=== PATIENT | male | born 1975 | race Caucasian/White ===

== ENCOUNTER 2020-04-02 19:34 | Emergency (ER) | payer OTHER ==
--- NOTE | 2020-04-02 19:36 | EDM.PDOC ---
ED HPI GENERAL MEDICAL PROBLEM - General Stated Complaint: LOW OXYGEN, NOT FEELING WELL Time Seen by Provider: 04/02/20 19:34 Source of Information: Reports: Patient History Limitations: Reports: No Limitations - History of Present Illness INITIAL COMMENTS - FREE TEXT/NARRATIVE: 44-year-old male no past medical history presents for concern for hypoxia. Patient notes that 3 weeks ago he started to feel unwell with loss of taste and smell, shortness of breath, cough, chest tightness. He did not get tested for Covid but self isolated. He notes continued but improving symptoms. He purchased a pulse oximeter today and noted that it was reading 65. His was concerned prompting him to seek medical attention. On further history he notes that the pulse ox read 99% and had number 65 at the bottom. - Related Data Allergies Allergy/AdvReac Type Severity Reaction Status Date / Time No Known Allergies Allergy Verified 04/02/20 20:13 Home Meds: Home Meds . [No Known Home Meds] 11/28/14 [History] Past Medical History - Past Surgical History Other GI Surgeries/Procedures: lapband ED ROS GENERAL - Review of Systems Review Of Systems: Comprehensive ROS is negative, except as noted in HPI. ED EXAM, GENERAL - Physical Exam Exam: See Below Exam Limited By: No Limitations General Appearance: Alert, WD/WN, No Apparent Distress Throat/Mouth: Normal Inspection, Normal Voice, No Airway Compromise Head: Atraumatic, Normocephalic Neck: Normal Inspection Respiratory/Chest: No Respiratory Distress, Lungs Clear, Normal Breath Sounds, No Accessory Muscle Use Cardiovascular: Normal Peripheral Pulses, Regular Rate, Rhythm, No Edema Extremities: Normal Inspection Neurological: Alert, Normal Gait Psychiatric: Normal Affect, Normal Mood Skin Exam: Warm, Dry, Intact, Normal Color Course - Vital Signs Last Recorded V/S: Last Vital Signs Temp 98.4 F 04/02/20 19:40 Pulse 68 04/02/20 19:40 Resp 20 04/02/20 19:40 BP 160/90 H 04/02/20 19:40 Pulse Ox 96 04/02/20 19:40 - Orders/Labs/Meds Labs: Laboratory Tests 04/02/20 Range/Units 20:00 SARS-CoV-2 RNA (MAGALY) POSITIVE H (NEGATIVE) - Re-Assessments/Exams Free Text/Narrative Re-Assessment/Exam: 04/02/20 19:59 Will get CXR and COVID-19 swab; suspicion for serious cardiopulmonary pathology is low as patient is with normal vitals and without respiratory distress on exam. 04/02/20 20:57 Patient's x-ray reveals mild bilateral bibasilar infiltrates consistent with COVID-19 pneumonia. COVID-19 swab is positive. Will discharge with Covid precautions. Patient maintains normal vital signs without supplemental oxygen and is in no respiratory distress. Departure - Departure Time of Disposition: 20:58 Disposition: Home, Self-Care 01 Condition: Good Clinical Impression: COVID-19 - Discharge Information Instructions: COVID-19 Frequently Asked Questions, COVID-19: How to Protect Yourself and Others - [facility] Referrals: PCP,None [Primary Care Provider] - Additional Instructions: The following information is given to patients seen in the emergency department who are being discharged to home. This information is to outline your options for follow-up care. We provide all patients seen in our emergency department with a follow-up referral. The need for follow-up, as well as the timing and circumstances, are variable depending upon the specifics of your emergency department visit. If you don't have a primary care physician on staff, we will provide you with a referral. We always advise you to contact your personal physician following an emergency department visit to inform them of the circumstance of the visit and for follow-up with them and/or the need for any referrals to a consulting specialist. The emergency department will also refer you to a specialist when appropriate. This referral assures that you have the opportunity for follow-up care with a specialist. All of these measure are taken in an effort to provide you with optimal care, which includes your follow-up. Under all circumstances we always encourage you to contact your private physician who remains a resource for coordinating your care. When calling for follow-up care, please make the office aware that this follow-up is from your recent emergency room visit. If for any reason you are refused follow-up, please contact the [facility] Emergency Department at and asked to speak to the emergency department charge nurse. Please follow up with your primary care physician. If you do not have a primary care physician, see below: [facility] [address] [place] [id number] [facility] [address] [place] [address] Sepsis Event Note (ED) - Focused Exam Vital Signs: Vital Signs Temp Pulse Resp BP Pulse Ox 04/02/20 19:40 98.4 F 68 20 160/90 H 96
[2020-04-02 19:46] VITALS: BP 160/90; PULSE 68
--- NOTE | 2020-04-02 20:37 | CR ---
Indication: COVID Technique: AP portable view of the chest. Comparison: November 28, 2014. Findings: Minimal patchy opacities are identified within both lung bases. This can be seen with COVID. No pleural effusion or pneumothorax is identified. The heart is normal in size. Impression: Patchy bilateral opacities identified in both lung bases, which can be seen with COVID, mild. Dictated by Maria Esther Armando MD @ Apr 02 2020 8:28PM Signed by Dr. Maria Esther Armando @ Apr 02 2020 8:36PM
== END 2020-04-02 21:00 | disposition home or self-care (01) ==
LOC: MW.ED 19:34
DX: U07.1 COVID-19 (principal)
CPT/HCPCS: 71045; 71045-26; 99283; 99284-25; U0002

== ENCOUNTER 2021-11-29 13:27 | Emergency (ER) | payer BC ==
[2021-11-29] MEDS ORDERED: Sodium Chloride 0.9% 1,000 ML IV ONE ×2 (15:15→16:07)
[2021-11-29 15:23] LABS: CARBON DIOXIDE,CO2 29.8 mmol/L (21.0-32.0); POTASSIUM,K 3.5 mmol/L (3.5-5.1)
[2021-11-29 17:07] VITALS: BP 123/61; PULSE 52
== END 2021-11-29 17:22 | disposition home or self-care (01) ==
LOC: MW.ED 13:27
DX: N17.9 Acute kidney failure, unspecified (principal); M62.82 Rhabdomyolysis; Z20.822 Contact with and (suspected) exposure to COVID-19
CPT/HCPCS: 36415; 71045; 80053; 81001; 82550; 84484; 85025; 85379; 87635; 93005; 96360; 96361; 99285; J7030; 93010; 99284; U0002

== ENCOUNTER 2021-12-03 14:50 | Emergency (ER) | payer BC ==
[2021-12-03] MEDS ORDERED: Sodium Chloride 0.9% 2.5 ML Syringe FLUSH PRN (15:01)
[2021-12-03] MEDS ORDERED: Sodium Chloride 0.9% 10 ML Syringe FLUSH PRN (15:01)
[2021-12-03] MEDS ORDERED: Sodium Chloride 0.9% 1,000 ML IV ONE (15:01)
[2021-12-03] MEDS ORDERED: Sodium Bicarbonate 150 MEQ in Dextrose 5% in Water 1,000 ML IV SCH ×2 (15:15)
[2021-12-03 18:04] VITALS: BP 128/78; PULSE 69
== END 2021-12-03 18:05 | disposition home or self-care (01) ==
LOC: MW.ED 14:50
DX: M62.82 Rhabdomyolysis (principal); Z87.898 Personal history of other specified conditions
CPT/HCPCS: 36415; 80053; 80061; 81001; 81003; 82306; 82550; 85025; 96365; 99283; J3490; J7030; J7060; 99284

== ENCOUNTER 2024-06-26 11:35 | Emergency (ER) | payer BC ==
[2024-06-26] MEDS ORDERED: Aspirin 81 MG Tab.Chew PO ONE (11:36)
[2024-06-26] MEDS ORDERED: Morphine 2 MG/ML SYRINGE IVPUSH PRN (11:41)
[2024-06-26 11:59] LABS: BASOPHILS ABSOLUTE AUTO 0.09 K/uL (0.00-0.20); BASOPHILS PERCENT AUTO 1.4 % (0.0-1.0); EOSINOPHILS ABSOLUTE AUTO 0.08 K/uL (0.00-0.45); EOSINOPHILS PERCENT AUTO 1.3 % (0.0-6.0); HEMATOCRIT 45.7 % (42.0-52.0); HEMOGLOBIN 16.1 g/dL (14.0-18.0); IMMATURE GRAN ABSOLUTE AUTO 0.01 K/uL (0.00-0.05); IMMATURE GRAN PERCENT AUTO 0.2 % (0.0-0.4); LYMPHOCYTES ABSOLUTE AUTO 1.91 K/uL (1.00-4.80); LYMPHOCYTES PERCENT AUTO 30.4 % (24.0-44.0); MEAN CORPUSCULAR HEMOGLOBIN 31.7 pg (28.0-32.0); MEAN CORPUSCULAR HGB CONC 35.2 g/dL (32.0-36.0); MEAN PLATELET VOLUME 8.7 fL (9.4-12.4); MONOCYTES ABSOLUTE AUTO 0.38 K/uL (0.00-0.80); MONOCYTES PERCENT AUTO 6.1 % (0.0-8.0); NEUTROPHILS ABSOLUTE AUTO 3.81 K/uL (1.80-7.70); NEUTROPHILS PERCENT AUTO 60.6 % (41.0-71.0); PLATELET COUNT,PLT 374 K/uL (150-400); RED BLOOD CELL COUNT 5.08 M/uL (4.52-5.90); WHITE BLOOD CELL COUNT,WBC 6.28 K/uL (3.9-11.3)
[2024-06-26] MEDS: Alum Hydrox/Mag Hydrox/Simeth 15 ML, Metoclopramide 5 MG, Lidocaine 2% 5 ML PO ONE (12:00)
[2024-06-26] MEDS: Ondansetron 4 MG/2 ML SDV IVPUSH ONE (12:00)
[2024-06-26] MEDS: Pantoprazole 40 MG in Sodium Chloride 0.9% 10 ML IVPUSH ONE (12:00)
[2024-06-26 12:15] LABS: INR 1.04 (0.86-1.11)
[2024-06-26 12:27] LABS: A/G RATIO 1.1 (0.9-1.6); ALANINE AMINOTRANSFERASE,ALT 17 IU/L (14-63); ALKALINE PHOSPHATASE 67 U/L (46-116); ASPARTATE AMNIOTRANSFERASE,AST 16 IU/L (15-37); BILIRUBIN TOTAL 0.8 mg/dL (0.2-1.0); BLOOD UREA NITROGEN,BUN 14 mg/dL (7.0-18.0); CALCIUM 8.9 mg/dL (8.5-10.1); CARBON DIOXIDE,CO2 24.3 mmol/L (21.0-32.0); CHLORIDE,CL 106 mmol/L (98-107); CREATININE 1.5 mg/dL (0.8-1.3); EST CRCL DRUG DOSING (CG) 75.55 mL/min; ESTIMATED GFR 58 mL/min (>60); GLUCOSE RANDOM 110 mg/dL (74-106); LIPASE 78 U/L (16-77); MAGNESIUM 1.8 mg/dL (1.8-2.4); POTASSIUM,K 3.9 mmol/L (3.5-5.1); PRO B-TYPE NATRIUR PEPT,BNPPRO 56 pg/mL (0-125); PROTEIN TOTAL,TP 7.7 g/dL (6.4-8.2); SODIUM,NA 141 mmol/L (136-148)
[2024-06-26] MEDS: Sodium Chloride 0.9% 1,000 ML IV ONE (12:58)
[2024-06-26] MEDS: droPERidol 2.5 MG/ML SDV IVPUSH ONE (12:59)
[2024-06-26] MEDS ORDERED: diphenhydrAMINE 50 MG/ML SDV IVPUSH ONE (13:30)
[2024-06-26] MEDS: diphenhydrAMINE 50 MG/ML SDV IVPUSH ONE (13:35)
[2024-06-26 14:04] VITALS: BP 130/85; PULSE 72
== END 2024-06-26 14:03 | disposition home or self-care (01) ==
LOC: MW.ED 11:35
DX: K21.9 Gastro-esophageal reflux disease without esophagitis (principal); R94.4 Abnormal results of kidney function studies; Z88.8 Allergy status to other drugs, medicaments and biological substances; Z79.899 Other long term (current) drug therapy; Z98.84 Bariatric surgery status
CPT/HCPCS: 36415; 71045; 80053; 83690; 83735; 83880; 84484; 85025; 85610; 87428; 93005; 96361; 96374; 96375; 99285; A9270; J1200; J1790; J2405; J2470; J7030; 93010; 99284